=== PATIENT | female | born 1985 | race Caucasian/White ===

== ENCOUNTER 2025-01-03 19:29 | Emergency (ER) | payer SELFPAY ==
[2025-01-03] VITALS (15 sets, daily range): BP systolic 138–157; BP diastolic 70–86; PULSE 78–94; RESP 16–20; TEMP 37.2; O2SAT 95–100; BMI 38.5
[2025-01-03 19:56] LABS: Culture Indicated Urine Cult Not Indicated
--- NOTE | 2025-01-03 20:17 | ED.GENADULT ---
HPI - General Adult General Chief complaint: Diabetic Problem Stated complaint: feeling shaky, blood sugar off? Time Seen by Provider: 01/03/25 19:40 Source: patient Mode of arrival: Ambulatory History of Present Illness HPI narrative: 39-year-old female prediabetic prescribed recently diabetic medicines she has not started taking presents with feeling shaky head to toe but not fever chills body aches despite eating a subway sandwich. 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 However she denies any chest pain, shortness of breath, dyspnea on exertion, headache, dizziness, blurred vision, nausea, vomiting, abdominal pain, back pain, gait instability, dizziness, lightheadedness, or loss of consciousness. Other than what is stated 14 point review of system is negative Related Data Allergies Allergy/AdvReac Type Severity Reaction Status Date / Time No Known Drug Allergies Allergy Verified 01/03/25 19:46 Review of Systems Review of Systems ROS Unobtainable: All systems reviewed & are unremarkable except as noted in HPI and below Patient History Social History Smoking Status: Never smoker Smoking Status: Never smoker Exam Narrative Exam Narrative: GENERAL: [39] year old patient appears stated age. Well-developed patient, in mild distress. HEAD: Atraumatic. Normocephalic. EYES: Pupils equal round and reactive. Extraocular motions intact. No scleral icterus. No injection or drainage. ENT: Nose without bleeding, purulent drainage. Throat without erythema, tonsillar hypertrophy or exudate. Airway patent. NECK: Trachea midline. Non tender CARDIOVASCULAR: Regular rate and rhythm without murmurs, gallops, or rubs. RESPIRATORY: Clear to auscultation. Breath sounds equal bilaterally. No wheezes, rales, or rhonchi. GASTROINTESTINAL: Abdomen soft, non-tender, nondistended. EXTREMITIES: No edema or joint tenderness. BACK: Nontender without deformity or crepitance. No flank tenderness. NEURO: AOx3. SKIN: No rash or erythema of visible areas Initial Vital Signs Initial Vital Signs: Vital Signs Pulse Rate 82 01/03/25 19:43 Pulse Oximetry 100 01/03/25 19:43 Course Orders Ordered: ED Orders 01/03/25 19:40 Test Urine Stat Urine Culture Stat Urine Microscopic Stat 01/03/25 19:56 Complete Blood Count AUTO DIFF Stat Comprehensive Metabolic Panel Stat [facility] Creatine Kinase MB Routine Lipase Stat Magnesium Stat NT-proBNP (BNP-Adult 18+) Stat Troponin I Stat 01/03/25 21:12 XR chest 1V Stat EKG-12 Lead Stat 01/03/25 21:18 Troponin I Stat Vital Signs Vital signs: Vital Signs - 8 hr 01/03/25 19:43 01/03/25 19:44 01/03/25 19:44 Temperature Pulse Rate 82 81 Respiratory Rate Blood Pressure 157/86 H Pulse Oximetry 100 97 Oxygen Delivery Method 01/03/25 19:46 01/03/25 20:00 01/03/25 20:30 Temperature 99.0 F Pulse Rate 81 83 83 Respiratory Rate 20 Blood Pressure 157/86 H Pulse Oximetry 100 99 98 Oxygen Delivery Method Room Air 01/03/25 21:00 01/03/25 21:26 01/03/25 21:26 Temperature Pulse Rate 85 94 H Respiratory Rate 16 20 Blood Pressure 156/76 H Pulse Oximetry 95 95 Oxygen Delivery Method 01/03/25 21:30 01/03/25 21:30 01/03/25 22:00 Temperature Pulse Rate 83 86 Respiratory Rate Blood Pressure 155/78 H Pulse Oximetry 95 96 Oxygen Delivery Method 01/03/25 22:01 01/03/25 22:01 Temperature Pulse Rate 85 Respiratory Rate 16 Blood Pressure 150/84 H Pulse Oximetry 98 Oxygen Delivery Method Medical Decision Making Lab Data 01/03/25 19:56 01/03/25 19:56 Labs: Lab Results 01/03/25 01/03/25 01/03/25 Range/Units 19:40 19:42 19:56 WBC 5.6 (4.5-11.0) X10^3/uL RBC 4.44 (4.0-5.2) X10^6/uL Hgb 13.0 (12.0-16.0) g/dL Hct 39.0 (36-46) % MCV 87.9 (80-100) fL MCH 29.4 (26-34) PG MCHC 33.5 (30-36) % RDW 13.9 (11.6-14.8) % Plt Count 341 (150-400) X10^3/uL Neut % (Auto) 56.3 (50-75) % Lymph % (Auto) 35.1 (25-40) % Garvin % (Auto) 5.6 (3-14) % Eos % (Auto) 1.4 L (2-4) % Baso % (Auto) 1.6 (0-2) % Neut # (Auto) 3200 (7526-1619) /uL Lymph # (Auto) 2000 (8069-2827) /uL Garvin # (Auto) 300 (0-900) /uL Eos # (Auto) 100 (0-450) /uL Baso # (Auto) 100 (0-100) /uL Sodium 138 (137-145) mmol/L Potassium 3.3 L (3.4-5.1) mmol/L Chloride 105 (98-107) mmol/L Carbon Dioxide 24 (22-32) mmol/L BUN 11 (7-17) mg/dL Creatinine 0.73 (0.52-1.04) mg/dL Estimated GFR > 60 (>60) mL/min BUN/Creatinine Ratio 15.1 (6-22) Glucose 145 H (70-99) mg/dL POC Whole Bld Glucose 135 H (70-99) mg/dL Calcium 9.1 (8.4-10.2) mg/dL Magnesium 2.0 (1.6-2.3) mg/dL Total Bilirubin 0.8 (0.2-1.3) mg/dL AST 38 H (14-36) IU/L ALT 34 (<35) IU/L Alkaline Phosphatase 53 (38-126) U/L Troponin I < 0.012 (0.01-0.034) ng/mL NT-Pro-B Natriuret Pep 26 (<125) pg/mL Total Protein 7.9 (6.3-8.2) g/dL Albumin 4.4 (3.5-5.0) g/dL Globulin 3.5 (1.7-4.1) g/dL Albumin/Globulin Ratio 1.3 (1.0-2.8) Lipase 50 (23-300) U/L Urine RBC None seen (0-5/HPF) Urine WBC 0-1/hpf (0-5/HPF) Ur Squamous Epith Cells 1-5 /hpf (0-5/HPF) Amorphous Sediment 1+ Urine Bacteria Moderate (10-30) H (None) Ur Culture Indicated? Cult not indicated Vol Urine Centrifuged 10ml (spun) Urine Test Negative (Negative) Urine Dip Bedside Urine Glucose Negative Bedside Urine Bilirubin - Negative Bedside Urine Ketone - Negative Urine Specific [place] 1.015 Bedside Urine Occult Blood - Negative Bedside Urine pH 6.0 Bedside Urine Protein - Negative Bedside Urine Urobilinogen +/- 1mg Bedside Urine Nitrite - Negative Bedside Urine Leukocytes ++ 125 Esterase Point of care testing: Urine Dip Bedside Urine Glucose Negative Bedside Urine Bilirubin - Negative Bedside Urine Ketone - Negative Urine Specific [place] 1.015 Bedside Urine Occult Blood - Negative Bedside Urine pH 6.0 Bedside Urine Protein - Negative Bedside Urine Urobilinogen +/- 1mg Bedside Urine Nitrite - Negative Bedside Urine Leukocytes ++ 125 Esterase Imaging Data Chest x-ray: Radiologist's Impression: [address] [address] XRay Report Signed Patient: Amy Tran MR#: [id number] : 1985 Acct:[id number] Age/Sex: 39 / F Date of Service: 01/03/25 Loc: ED Accession Number: [id number] Procedure: XR chest 1V Ordering Provider: Oh Smith D.O. PROCEDURE: XR CHEST 1V INDICATIONS: chest pain TECHNIQUE: One view of the chest was acquired. COMPARISON: None. FINDINGS: Surgical changes and devices: None. Lungs and pleura: Lungs are clear. No pleural effusions or pneumothorax. Mediastinum: Mediastinal contours appear normal. Heart size is normal. Bones and chest wall: No suspicious bony lesions. Overlying soft tissues appear unremarkable. IMPRESSION: No acute cardiopulmonary abnormality is seen. ECG Data Interpretation: NSR HR 76 IL 152 QRS [address]-t wave No previous EKG to compare MDM Narrative Additional Information: All lab work, vital signs, nurse triage note, medication list, previous ER visits, and all imaging studies reviewed. WBC 5.6 hemoglobin 13 platelets 341 sodium 138 potassium 3.3 chloride 105 CO2 24 BUN 11 creatinine 0.73 glucose 145 magnesium 2.0 troponin less than 0.012 BNP 26 urine moderate bacteria otherwise normal. Chest x-ray showed no acute cardiopulmonary abnormality. Patient given potassium 40 mEq. 2nd trop < 0.012. Differential diagnosis - hypoglycemia, electrolyte derangement, stemi, nstemi, dehydration. Discharge Plan Departure Patient Disposition: Home Clinical Impression: Acute hypokalemia Instructions: DI for Hypokalemia Activity Restrictions/Additional Instructions: Return with new or worsening symptoms. Keep hydrated. Stand Alone Forms: Patient Portal/API
--- NOTE | 2025-01-03 21:12 | DI.RAD.S_ITS ---
PROCEDURE: XR CHEST 1V INDICATIONS: chest pain TECHNIQUE: One view of the chest was acquired. COMPARISON: None. FINDINGS: Surgical changes and devices: None. Lungs and pleura: Lungs are clear. No pleural effusions or pneumothorax. Mediastinum: Mediastinal contours appear normal. Heart size is normal. Bones and chest wall: No suspicious bony lesions. Overlying soft tissues appear unremarkable. IMPRESSION: No acute cardiopulmonary abnormality is seen. Dictated by: Jim Hewitt M.D. on 01/03/2025 at 21:30 Approved by: Jim Hewitt M.D. on 01/03/2025 at 21:31
[2025-01-03 21:42] LABS: Add Manual Diff / Slide Review NO; Hematocrit 39.0 % (36-46); Hemoglobin 13.0 g/dL (12.0-16.0); Lymphocytes Absolute Auto 2000 /uL (1100-4500); Mean Corpuscular HGB Conc 33.5 % (30-36); Mean Corpuscular Hemoglobin 29.4 PG (26-34); Mean Corpuscular Volume 87.9 fL (80-100); Platelet Count 341 X10^3/uL (150-400)
[2025-01-03 21:46] LABS: Alanine Aminotransferase 34 IU/L (<35); Albumin 4.4 g/dL (3.5-5.0); Albumin Globulin Ratio 1.3 (1.0-2.8); Alkaline Phosphatase 53 U/L (38-126); Blood Urea Nitrogen 11 mg/dL (7-17); Calcium 9.1 mg/dL (8.4-10.2); Carbon Dioxide 24 mmol/L (22-32); Chloride 105 mmol/L (98-107); Estimated Glomerular Filt Rate > 60 mL/min (>60); Globulin 3.5 g/dL (1.7-4.1); Glucose 145 mg/dL (70-99); HEMOLYSIS < 15 (0-50); Lipase 50 U/L (23-300); Magnesium 2.0 mg/dL (1.6-2.3); Potassium 3.3 mmol/L (3.4-5.1); Sodium 138 mmol/L (137-145); Total Protein 7.9 g/dL (6.3-8.2)
[2025-01-03 21:57] LABS: NT-proBNP (BNP-Adult 18+) 26 pg/mL (<125); Troponin I < 0.012 ng/mL (0.01-0.034)
[2025-01-03 22:48] LABS: Troponin I < 0.012 ng/mL (0.01-0.034)
--- NOTE | 2025-01-03 22:56 | EKG_ITS ---
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
[2025-01-03] MEDS: POTASSIUM CHLORIDE 20 MEQ TAB 40 MEQ PO (22:57)
[2025-01-05 08:10] LABS: Labcorp Creatine Kinase MB 3.2 ng/mL (0.0-5.3)
== END 2025-01-03 23:41 | disposition home or self-care (01) ==
PROVIDERS: Emergency Provider Family Medicine
DX: E87.6 Hypokalemia (principal); R07.9 Chest pain, unspecified
CPT/HCPCS: 71045; 80053; 81003; 81015; 81025; 82553; 82962; 83690; 83735; 83880; 84484; 85025; 87086; 93005; 93010; 99283; 99284